=== PATIENT | male | born 1955 | race Caucasian/White ===

== ENCOUNTER → 2018-08-22 | Outpatient (CLI) | payer MEDICARE, OTHER ==
[2018-08-22 17:00] LABS: Basophils # (A) 0.1 k/uL (0-0.2); Basophils % (A) 1 %; Eosinophils # (A) 0.4 k/uL (0-0.7); Eosinophils % (A) 4 %; HCT 49.6 % (39.0-53.0); HGB 15.7 gm/dL (13.0-17.5); Lymphocytes # (A) 2.9 k/uL (1.0-4.8); Lymphocytes % (A) 33 %; MCH 31.1 pg (25.0-35.0); MCHC 31.7 g/dL (31.0-37.0); Mean Platelet Volume 6.3; Monocytes # (A) 0.6 k/uL (0-1.0); Monocytes % (A) 7 %; Neutrophils # (A) 4.6 k/uL (1.3-7.7); Neutrophils % (A) 53 %; Platelet Count 213 k/uL (150-450); RBC 5.06 m/uL (4.30-5.90); RDW 12.9 % (11.5-15.5); WBC 8.7 k/uL (3.8-10.6)
--- NOTE | 2018-08-23 10:11 | XR ---
EXAMINATION TYPE: XR chest 2V DATE OF EXAM: 08/22/2018 COMPARISON: NONE HISTORY: Dyspnea on exertion TECHNIQUE: Frontal and lateral views of the chest are obtained. FINDINGS: There is no focal air space opacity, pleural effusion, or pneumothorax seen. The cardiac silhouette size is within normal limits. The osseous structures are intact. Some thickening of the fissures noted on the right is mild. There is elevation of the right hemidiaphragm. IMPRESSION: No acute cardiopulmonary process. Additional findings above.
[2018-08-23 11:54] LABS: Albumin 4.5 g/dL (3.80-4.90); Albumin/Globulin Ratio 1.55 (1.60-3.17); Anion Gap 16.1 mmol/L (4.00-12.00); Carbon Dioxide 22.9 mmol/L (21.6-31.8); Globulin 2.9 g/dL (1.6-3.3); Total Bilirubin 0.5 mg/dL (0.3-1.2); Total Protein 7.4 g/dL (6.2-8.2)
== END | disposition home or self-care (01) ==
LOC: LABWHC1 15:26
PROVIDERS: ATTEND Family Medicine
DX: J98.6 Disorders of diaphragm (principal); R91.8 Other nonspecific abnormal finding of lung field; R06.09 Other forms of dyspnea; E66.9 Obesity, unspecified; R94.31 Abnormal electrocardiogram [ECG] [EKG]; N40.0 Benign prostatic hyperplasia without lower urinary tract symptoms
CPT/HCPCS: 36415; 71046; 80053; 82550; 82552; 84153; 85025

== ENCOUNTER → 2018-08-24 | Outpatient (CLI) | payer MEDICARE, OTHER ==
[~2018-08-24] MED LIST: REGADENOSON 0.4 MG/5 ML SYRINGE IV ONE
--- NOTE | 2018-08-24 10:45 | EST ---
EXERCISE STRESS DATE OF SERVICE: 08/24/2018 AGE: 63 SEX: Male HT: 68" WT: 250 pounds PROTOCOL: Lexiscan Cardiolite STAGE: DURATION OF EXERCISE: HEART RATE REST: 86 BLOOD PRESSURE REST: 118/83 MAXIMUM HEART RATE ACHIEVED: 100 MAXIMUM BLOOD PRESSURE: 124/63 85% MPHR: 100% MPHR: METS: INDICATIONS: Shortness of breath. CLINICAL INFORMATION: Baseline EKG shows sinus rhythm, normal axis, normal intervals. The patient was given intravenous Lexiscan as per protocol. Did not have chest pain or diagnostic ST-segment depression. CONCLUSIONS: 1. Negative stress test by EKG criteria. 2. Cardiolite portion of the stress test will be reported separately. MMODL / IJN: [id number] /
--- NOTE | 2018-08-24 12:13 | ECHOF ---
Referral Reason:R94.31 Abnormal ekg MEASUREMENTS -------- HEIGHT: 172.7 cm WEIGHT: 113.4 kg BP: 118/64 RVIDd: 3.5 cm (< 3.3) IVSd: 1.3 cm (0.6 - 1.1) LVIDd: 4.3 cm (3.9 - 5.3) LVPWd: 1.3 cm (0.6 - 1.1) IVSs: 1.6 cm LVIDs: 2.6 cm LVPWs: 1.4 cm LA Diam: 2.9 cm (2.7 - 3.8) LAESV Index (A-L): 18.66 ml/m Ao Diam: 4.0 cm (2.0 - 3.7) AV Cusp: 2.8 cm (1.5 - 2.6) MV EXCURSION: 16.659 mm (> 18.000) MV EF SLOPE: 28 mm/s (70 - 150) EPSS: 0.6 cm MV E Alexx: 0.64 m/s MV DecT: 326 ms MV A Alexx: 0.80 m/s MV E/A Ratio: 0.81 RAP: 5.00 mmHg RVSP: 33.95 mmHg FINDINGS -------- Sinus rhythm. This was a technically adequate study. The left ventricular size is normal. There is mild concentric left ventricular hypertrophy. Overa ll left ventricular systolic function is normal with, an EF between 60 - 65 %. The right ventricle is normal in size. Normal LA size by volume 22+/-6 ml/m2. The right atrium is normal in size. The aortic valve is trileaflet and appears structurally normal. The mitral valve is normal. Mild tricuspid regurgitation present. Right ventricular systolic pressure is normal at < 35 mmHg. Trace/mild (physiologic) pulmonic regurgitation. The aortic root is dilated measuring 4.0cm. Normal inferior vena cava with normal inspiratory collapse consistent with estimated right atrial pre ssure of 5 mmHg. There is no pericardial effusion. CONCLUSIONS -------- 1. Sinus rhythm. 2. This was a technically adequate study. 3. The left ventricular size is normal. 4. There is mild concentric left ventricular hypertrophy. 5. Overall left ventricular systolic function is normal with, an EF between 60 - 65 %. 6. The right ventricle is normal in size. 7. Normal LA size by volume 22+/-6 ml/m2. 8. The right atrium is normal in size. 9. The aortic valve is trileaflet and appears structurally normal. 10. The mitral valve is normal. 11. Mild tricuspid regurgitation present. 12. Right ventricular systolic pressure is normal at < 35 mmHg. 13. Trace/mild (physiologic) pulmonic regurgitation. 14. The aortic root is dilated measuring 4.0cm. 15. Normal inferior vena cava with normal inspiratory collapse consistent with estimated right atrial pressure of 5 mmHg. 16. There is no pericardial effusion. AIRPLANE CAPTAIN: Virginia Encarnacion RDCS
--- NOTE | 2018-08-24 12:30 | NM ---
"EXAMINATION TYPE: NM stress lexiscan cardiolite DATE OF EXAM: 08/24/2018 COMPARISON: NONE HISTORY: Chest pain TECHNIQUE: After the intravenous administration of 10.0 mCi Tc 99m Sestamibi - Cardiolite resting SP ECT images acquired 45 minutes post injection. The patient received 0.4mg Lexiscan, 24.8 mCi Tc 99m Sestamibi - Stress images obtained [address] injection FINDINGS: Review of stress and rest SPECT images demonstrates question a small area of stress-induced reversibi lity involving the inferior lateral myocardium. Gated analysis shows normal wall motion with an cosme mated left ventricular ejection fraction of 60 %. Report called to referring clinician by telephone. IMPRESSION: 1. Lines suggestive of a small area of stress-induced reversibility and ischemia involving the inferi or lateral myocardium correlate clinically. 2. Ejection fraction of 60% A [place] level critical message alert has been initiated for Violeta Hernandez MD via the [employer] [facility] | Critical Results System on 08/24/2018 12:26 PM. This message alert has been sent to Violeta sanchez MD via the preferences provided by the clinician for the receipt of Radiology Critical Findings. Александр [facility] ID [id number]."
== END | disposition home or self-care (01) ==
LOC: RADNMMAIN 08:34
PROVIDERS: ATTEND Family Medicine
DX: I07.1 Rheumatic tricuspid insufficiency (principal); I37.1 Nonrheumatic pulmonary valve insufficiency
CPT/HCPCS: 93017; 93306; 78452; A9500; J2785

== ENCOUNTER → 2018-08-26 | Outpatient (CLI) | payer MEDICARE, OTHER | END | disposition home or self-care (01) | LOC: LABWHC1 08:43 | PROVIDERS: ATTEND Nurse Practitioner Adult Health | DX: E78.2 Mixed hyperlipidemia (principal) | CPT/HCPCS: 36415; 80061; 84450; 84460 ==

== ENCOUNTER → 2018-08-29 | Day surgery (SDC) | payer MEDICARE, OTHER ==
[2018-08-25 14:28] VITALS: BMI 38.0
[~2018-08-29] MED LIST changes: +ALPRAZolam 0.25 MG TAB PO PRN; +ALPRAZolam 0.5 MG TAB PO PRN; +ASPIRIN 325 MG TAB PO STA; +ATORVASTATIN 80 MG TAB PO STA; +HYDROcodone/APAP 5-325MG 1 EACH TAB PO PRN; +IOPAMIDOL-370 100ML BTL INJ ONE; +IOPAMIDOL-370 50ML BTL INJ ONE; +LIDOCAINE 1% INJ 10MG/ML (20 ML MDV) ONE; +LIDOCAINE 1% INJ 10MG/ML (20 ML MDV) SQ ONE; +MIDAZOLAM 2 MG/2 ML VIAL IVP ONE; +NITROGLYCERIN SL TABS 0.4 MG TAB SUBLINGUAL PRN; -REGADENOSON 0.4 MG/5 ML SYRINGE IV ONE; +RX INFO: IV CONTRAST WAS GIVEN 1 EACH MISC MISCELLANE PRN; +SODIUM CHLORIDE 0.9% 1,000 ML IV SCH; +SODIUM CHLORIDE 0.9% 1,000 ML in EMPTY BAG 1 BAG IV ONE; +fentaNYL (PF) 50 MCG/ML 2 ML AMP IVP ONE; +fentaNYL (PF) 50 MCG/ML 2 ML AMP ONE
[2018-08-29 10:04] VITALS: TEMP 98
--- NOTE | 2018-08-29 13:03 | CC ---
CARDIAC CATHETERIZATION REPORT Mrs Roberts is a 63-year-old female who was seen by Dr. Simon. Patient is having a recent onset of exertional shortness of breath. A stress test was suggestive of mild inferior lateral ischemia. In view of that, the patient was recommended to have a cardiac catheterization for definitive diagnosis. PROCEDURE: The right groin was prepped and draped in the usual manner and the skin was infiltrated with 2% Xylocaine. The right femoral artery was entered using Seldinger technique and a micropuncture needle, a #6-Monegasque sheath was placed in. Selective coronary angiography was then performed in multiple projections. Left ventriculography was performed in 30-degree SALAZAR projection. Sheath was removed. Good hemostasis was achieved with the use of Angio-Seal. Moderate sedation was used. The sedation time was 27 minutes. HEMODYNAMICS: Left ventricular end-diastolic pressure is 8-10 mmHg prior to angiography. No gradient is noted across the aortic valve. SELECTIVE CORONARY ANGIOGRAPHY: Left main coronary artery is normal and patent. LAD is a good caliber blood vessel and gives rise to a good size diagonal branch. LAD and its branches are normal. Circumflex coronary artery is a good caliber blood vessel and gives rise to a good size obtuse marginal branch. Circumflex coronary artery and its branches are normal. The right coronary artery is dominant in distribution and gives rise to the PDA and PLV branch. Right coronary artery is normal. Left ventriculography revealed ejection fraction of 60%. IMPRESSION: There is a mild irregularity in the LAD system. Circumflex and right coronary arteries are normal. RECOMMENDATIONS: Medical treatment and risk factor modification. MMODL / IJN: [id number] /
[2018-08-29 13:04] VITALS: RESP 18
[2018-08-29 14:10] VITALS: BP 104/58; PULSE 94
== END | disposition home or self-care (01) ==
LOC: CATHCVL 09:19
PROVIDERS: ATTEND Internal Medicine Cardiovascular Disease
DX: R94.39 Abnormal result of other cardiovascular function study (principal); R06.02 Shortness of breath; Z79.899 Other long term (current) drug therapy
CPT/HCPCS: 93458; C1760; C1894; C1769 ×2; J2250; J2001; J3010; Q9967 ×2

== ENCOUNTER 2018-08-30 12:31 | Emergency (ER) | payer MEDICARE, OTHER ==
[2018-08-30] MEDS ORDERED: IPRATROPIUM-ALBUTEROL 3 ML NEB INHALATION STA (12:52)
[2018-08-30] MEDS ORDERED: SODIUM CHLORIDE 0.9% 1,000 ML IV STA (13:03)
--- NOTE | 2018-08-30 13:09 | ED ---
General Adult HPI - General Chief complaint: Shortness of Breath Stated complaint: SOB Time Seen by Provider: 08/30/18 12:40 Source: patient, RN notes reviewed, old records reviewed Limitations: no limitations - History of Present Illness Initial comments: 63-year-old male patient past medical history of BPH presents to ED with approximately 4 weeks of shortness of breath with exertion. Patient reports that in the last week this shortness of breath exertion has gotten worse. Patient has additionally had a waxing and waning cough for approximately 2 months. Patient has been noted by his primary care provider for this problem, was referred to cardiology where he underwent a cardiac catheterization yesterday. This cardiac catheterization revealed mild irregularity of the LAD, and an ejection fraction of 60%. Patient denies any chest pain. Patient states that right now his shortness of breath is minimal. Patient denies any other complaints. Patient denies abdominal pain, nausea vomiting diarrhea, fevers or chills. Systemic: Pt denies fatigue, myalgia, fever/chills, rash. Pt denies weakness, night sweats, weight loss. Neuro: Pt denies headache, visual disturbances, syncope or pre-syncope. HEENT: Pt denies ocular discharge or irritation, otalgia, rhinorrhea, pharyngitis or notable lymphadenopathy. Cardiopulmonary: Pt denies chest pain, heart palpitations. Abdominal/GI: Pt denies abdominal pain, n/v/d. : Pt denies dysuria, burning w/ urination, frequency/urgency. Denies new onset urinary or bowel incontinence. MSK: Pt denies myalgia, loss of strength or function in extremities. Neuro: Pt denies new onset weakness, paresthesias. - Related Data Home Medications Medication Instructions Recorded Confirmed Atorvastatin [Lipitor] 20 mg PO HS 08/25/18 08/30/18 Finasteride [Proscar] 5 mg PO HS 08/25/18 08/30/18 Isosorbide Mononitrate ER [Imdur] 30 mg PO DAILY 08/25/18 08/30/18 Metoprolol Tartrate [Lopressor] 25 mg PO QA 08/25/18 08/30/18 Mirtazapine [Remeron] 30 mg PO HS 08/25/18 08/30/18 Tamsulosin [Flomax] 0.4 mg PO DAILY 08/25/18 08/30/18 Allergies Allergy/AdvReac Type Severity Reaction Status Date / Time No Known Allergies Allergy Verified 08/30/18 12:57 Review of Systems ROS Statement: Those systems with pertinent positive or pertinent negative responses have been documented in the HPI. ROS Other: All systems not noted in ROS Statement are negative. Past Medical History Past Medical History: Cancer, Prostate Disorder Additional Past Medical History / Comment(s): wheezing/SOB with activity, frequent coughing, melanoma, hx kidney stones History of Any Multi-Drug Resistant Organisms: None Reported Additional Past Surgical History / Comment(s): melanoma removed from face, Past Anesthesia/Blood Transfusion Reactions: No Reported Reaction Past Psychological History: No Psychological Hx Reported Smoking Status: Never smoker Past Alcohol Use History: None Reported Past Drug Use History: None Reported - Past Family History Mother Family Medical History: No Reported History General Exam - General Exam Comments Initial Comments: Constitutional: NAD, AOX3, Pt has pleasant affect. HEENT: NC/AT, trachea midline, neck supple, no lymphadenopathy. Posterior pharynx non erythematous, without exudates. External ears appear normal, without discharge. Mucous membranes moist. Eyes PERRLA, EOM intact. There is no scleral icterus. No pallor noted. Cardiopulmonary: RRR, no murmurs, rubs or gallops, no JVD noted. Lungs CTAB in anterior and posterior edwards. No peripheral edema. Abdominal exam: Abdomen soft and non-distended. Abdomen non-tender to palpation in all 4 quadrants. Bowel sounds active in LLQ. No hepatosplenomegaly. No ecchymosis Neuro: CN II-XII grossly intact. No nuchal rigidity. MSK: No posterior calf tenderness bilaterally, homans sign negative bilaterally. Posterior tibialis and radial pulse +2 bilaterally. Sensation intact in upper and lower extremities. Full active ROM in upper and lower extremities, 5/5 stregnth. Limitations: no limitations Course Vital Signs 08/30/18 08/30/18 08/30/18 12:35 13:00 13:10 Temperature 97.8 F Pulse Rate 100 101 H 96 Respiratory 18 18 Rate Blood Pressure 115/74 140/77 O2 Sat by Pulse 93 L 93 L Oximetry 08/30/18 08/30/18 08/30/18 14:00 15:00 16:00 Temperature 98.6 F Pulse Rate 98 101 H 103 H Respiratory 22 22 20 Rate Blood Pressure 108/63 127/76 125/73 O2 Sat by Pulse 93 L 94 L 97 Oximetry Medical Decision Making - Medical Decision Making 63-year-old male patient past medical history of BPH presents to ED with approximately 4 weeks of shortness of breath with exertion. Patient reports that in the last week this shortness of breath exertion has gotten worse. Patient has additionally had a waxing and waning cough for approximately 2 months. Patient has been noted by his primary care provider for this problem, was referred to cardiology where he underwent a cardiac catheterization yesterday. This cardiac catheterization revealed mild irregularity of the LAD, and an ejection fraction of 60%. Patient denies any chest pain. Patient states that right now his shortness of breath is minimal. Patient denies any other complaints. Patient denies abdominal pain, nausea vomiting diarrhea, fevers or chills. Pt VS display HR of 100, sp02 of 93%. Physical exam did not reveal acute pathology. Laboratory investigations revealed nonimmpressive CBC. Coagulation studies nonimpressive. CMP nonimpressive. D dimer elevated at 31.97. Troponin elevated at .048. BNP elevated at 4550. Pulmonary angiography revealed massive pulmonary emboli with right ventricular strain. Pt started on highdose heparin. Pt transferred to [facility], spoke with attending physician Dr. Jeffries Case discussed in depth and pt seen by Dr. Holder. Vitals prior to transfer, 125/73 97% sp02, HR 101. - Lab Data Result diagrams: 08/30/18 13:33 08/30/18 13:33 Lab Results 08/30/18 08/30/18 08/30/18 Range/Units 13:33 13:33 13:33 WBC 9.2 (3.8-10.6) k/uL RBC 4.51 (4.30-5.90) m/uL Hgb 14.3 (13.0-17.5) gm/dL Hct 43.8 (39.0-53.0) % MCV 97.0 (80.0-100.0) fL MCH 31.7 (25.0-35.0) pg MCHC 32.7 (31.0-37.0) g/dL RDW 13.0 (11.5-15.5) % Plt Count 216 (150-450) k/uL Neutrophils % 63 % Lymphocytes % 26 % Monocytes % 6 % Eosinophils % 3 % Basophils % 1 % Neutrophils # 5.8 (1.3-7.7) k/uL Lymphocytes # 2.4 (1.0-4.8) k/uL Monocytes # 0.5 (0-1.0) k/uL Eosinophils # 0.3 (0-0.7) k/uL Basophils # 0.0 (0-0.2) k/uL PT 11.4 (9.0-12.0) sec INR 1.1 (<1.2) APTT 25.4 (22.0-30.0) sec D-Dimer 31.97 H (<0.60) mg/L FEU Sodium 144 (137-145) mmol/L Potassium 4.9 (3.5-5.1) mmol/L Chloride 109 H (98-107) mmol/L Carbon Dioxide 26 (22-30) mmol/L Anion Gap 9 mmol/L BUN 22 H (9-20) mg/dL Creatinine 1.18 (0.66-1.25) mg/dL Est GFR (CKD-EPI)AfAm 74 (>60 ml/min/1.73 sqM) Est GFR (CKD-EPI)NonAf 64 (>60 ml/min/1.73 sqM) Glucose 126 H (74-99) mg/dL Calcium 9.3 (8.4-10.2) mg/dL Magnesium (1.6-2.3) mg/dL Total Bilirubin 0.8 (0.2-1.3) mg/dL AST 29 (17-59) U/L ALT 39 (21-72) U/L Alkaline Phosphatase 42 (38-126) U/L Troponin I (0.000-0.034) ng/mL NT-Pro-B Natriuret Pep pg/mL Total Protein 6.9 (6.3-8.2) g/dL Albumin 3.8 (3.5-5.0) g/dL 08/30/18 08/30/18 08/30/18 Range/Units 13:33 13:33 13:33 WBC (3.8-10.6) k/uL RBC (4.30-5.90) m/uL Hgb (13.0-17.5) gm/dL Hct (39.0-53.0) % MCV (80.0-100.0) fL MCH (25.0-35.0) pg MCHC (31.0-37.0) g/dL RDW (11.5-15.5) % Plt Count (150-450) k/uL Neutrophils % % Lymphocytes % % Monocytes % % Eosinophils % % Basophils % % Neutrophils # (1.3-7.7) k/uL Lymphocytes # (1.0-4.8) k/uL Monocytes # (0-1.0) k/uL Eosinophils # (0-0.7) k/uL Basophils # (0-0.2) k/uL PT (9.0-12.0) sec INR (<1.2) APTT (22.0-30.0) sec D-Dimer (<0.60) mg/L FEU Sodium (137-145) mmol/L Potassium (3.5-5.1) mmol/L Chloride (98-107) mmol/L Carbon Dioxide (22-30) mmol/L Anion Gap mmol/L BUN (9-20) mg/dL Creatinine (0.66-1.25) mg/dL Est GFR (CKD-EPI)AfAm (>60 ml/min/1.73 sqM) Est GFR (CKD-EPI)NonAf (>60 ml/min/1.73 sqM) Glucose (74-99) mg/dL Calcium (8.4-10.2) mg/dL Magnesium 2.0 (1.6-2.3) mg/dL Total Bilirubin (0.2-1.3) mg/dL AST (17-59) U/L ALT (21-72) U/L Alkaline Phosphatase (38-126) U/L Troponin I 0.048 H* (0.000-0.034) ng/mL NT-Pro-B Natriuret Pep 4550 pg/mL Total Protein (6.3-8.2) g/dL Albumin (3.5-5.0) g/dL - EKG Data -: EKG Interpreted by Me (and dr holder) EKG Comments: Ventricular rate 97, TN interval 114, QRS 102, QT/QTC 390/495. Normal sinus rhythm, anterior infarct, age undetermined. Abnormal EKG. Disposition Clinical Impression: Pulmonary embolism Disposition: OTHER INSTITUTION NOT DEFINED Condition: Serious Instructions (If sedation given, give patient instructions): Pulmonary Embolism (ED) Is patient prescribed a controlled substance at d/c from ED?: No Referrals: Violeta Hernandez MD [Primary Care Provider] - 1-2 days - Out of Hospital Transfer - Req. Specs Out of Hospital Transfer - Requested Specifics: Other Emergency Center
[2018-08-30 13:56] LABS: Basophils % (A) 1 %; Eosinophils # (A) 0.3 k/uL (0-0.7); Eosinophils % (A) 3 %; HCT 43.8 % (39.0-53.0); HGB 14.3 gm/dL (13.0-17.5); Lymphocytes # (A) 2.4 k/uL (1.0-4.8); Lymphocytes % (A) 26 %; MCH 31.7 pg (25.0-35.0); MCHC 32.7 g/dL (31.0-37.0); Mean Platelet Volume 7.1; Monocytes # (A) 0.5 k/uL (0-1.0); Monocytes % (A) 6 %; Neutrophils # (A) 5.8 k/uL (1.3-7.7); Neutrophils % (A) 63 %; Platelet Count 216 k/uL (150-450); RBC 4.51 m/uL (4.30-5.90); WBC 9.2 k/uL (3.8-10.6)
[2018-08-30 14:05] LABS: Albumin 3.8 g/dL (3.5-5.0); Calcium 9.3 mg/dL (8.4-10.2); Potassium 4.9 mmol/L (3.5-5.1); Total Bilirubin 0.8 mg/dL (0.2-1.3); Total Protein 6.9 g/dL (6.3-8.2)
--- NOTE | 2018-08-30 14:20 | XR ---
EXAMINATION TYPE: XR chest 2V DATE OF EXAM: 08/30/2018 COMPARISON: 08/22/2018 HISTORY: 63 year-old male shortness of breath, difficulty breathing TECHNIQUE: PA and lateral views FINDINGS: Somewhat lordotic positioning. Heart upper limits of normal in size. Bilateral hilar prominence. Mini mal thickening of the minor fissure. Mild interstitial prominence. No kae consolidation or pleural effusion. IMPRESSION: 1. Bilateral hilar prominence. This could represent underlying hilar lymphadenopathy or pulmonary art erial hypertension. Nonemergent contrast enhanced CT of the chest to further evaluate. 2. Mild interstitial prominence could reflect bronchitis or asthma.
[2018-08-30 14:28] LABS: INR 1.1 (<1.2); Partial Thromboplastin Time 25.4 sec (22.0-30.0); Prothrombin Time 11.4 sec (9.0-12.0)
[2018-08-30 14:35] LABS: D-Dimer 31.97 mg/L FEU (<0.60)
[2018-08-30] MEDS ORDERED: HEPARIN SODIUM,PORCINE 10,000 UNIT/ML 1 ML VIAL IV ONE (15:06)
[2018-08-30] MEDS ORDERED: HEPARIN SODIUM,PORCINE 5,000 UNIT/ML 1 ML VIAL IV PRN (15:06)
[2018-08-30] MEDS ORDERED: HEPARIN SOD,PORK IN 0.45% NACL 25,000 UNIT in 0.45% NACL 1 250ML.BAG IV SCH (15:15)
--- NOTE | 2018-08-30 15:40 | CT ---
EXAMINATION TYPE: CT chest angio for PE DATE OF EXAM: 08/30/2018 COMPARISON: Chest x-ray same date HISTORY: Shortness of breath, elevated d-dimer CT DLP: 786.3 mGycm Automated exposure control for dose reduction was used. CONTRAST: CT Chest for pulmonary embolism performed with with IV Contrast, patient injected with 100 mL of Isov ue 370. FINDINGS: LUNGS: The lungs are remarkable for nodular density seen along the fissure laterally measuring approx imately 2 cm in greatest AP dimension, additional small nodular density in the subpleural location ax ial image 78 is present in the subpleural location along the fissure measuring only 9 mm. Minimal la undglass opacity present in the left upper lobe is noted peripherally. MEDIASTINUM: There is extensive abnormal filling defect present within the pulmonary arteries, segmen deena branches, sagittal and was is present. Pulmonary artery is dilated. Reflux of contrast present wi thin the inferior vena cava, hepatic veins. Question some bowing of the interventricular septum sugge sting right ventricular strain. No pleural pericardial effusion. AORTA: No additional significant abnormality is seen. No evident aneurysm or dissection. OTHER: Low-attenuation of the liver may be due to hepatic steatosis. IMPRESSION: Massive pulmonary emboli with right ventricular strain, results called to Adam in the emergency center at the time of performance of the exam. Indeterminate nodular densities in the right lung a question able clinical significance, follow-up suggested to exclude soft tissue mass. Possible pulmonary infar ction left upper lobe. Additional findings above.
[2018-08-30 16:25] VITALS: BP 125/73; PULSE 103; RESP 20; TEMP 98.6
== END 2018-08-30 16:15 | disposition short-term general hospital (02) ==
LOC: EC 12:31
DX: I26.99 Other pulmonary embolism without acute cor pulmonale (principal); Z79.899 Other long term (current) drug therapy; Z85.820 Personal history of malignant melanoma of skin; Z95.5 Presence of coronary angioplasty implant and graft
CPT/HCPCS: 36415; 94640; 93005; 85379; 83880; 80053; 83735; 84484; 85025; 85610; 85730; 71046; 71275; 99285; 96374; 96361; J1644 ×2; Q9967

== ENCOUNTER → 2019-01-04 | Outpatient (CLI) | payer MEDICARE, OTHER ==
--- NOTE | 2019-01-04 13:55 | MR ---
EXAMINATION TYPE: MR lumbar spine wo con DATE OF EXAM: 01/04/2019 COMPARISON: None HISTORY: Low back pain, stenosis TECHNIQUE: Multiplanar, multisequence images of the lumbar spine were acquired. L1-L2: Posterior broad-based disc bulge results in some mild central stenosis. No significant foramin al encroachment. There is facet arthropathy L2-L3: Posterior broad-based disc bulge causes mild anterior mass effect on the thecal sac. There is facet arthropathy change. Mild central stenosis. No significant foraminal encroachment. L3-L4: Broad-based posterior disc bulge is present, more focal small central disc herniation is suspe cted causing anterior mass effect on the thecal sac, mild to moderate central stenosis. There is face t arthropathy causing posterior lateral mass effect on the thecal sac greater from the right, circumf erential extension of endplate disc complex encroaches mildly on the right foramen. L4-L5: Facet arthropathy with hypertrophy ligamentum flavum causes posterior lateral mass effect on t he thecal sac and results in some mild to moderate central stenosis. Circumferential disc bulge cause s mild anterior mass effect on the thecal sac. Lateral extension of endplate disc complex results in some foraminal encroachment greater on the right than on the left. L5-S1: Posterior broad-based disc bulge contacts anterior thecal sac and possibly the proximal S1 ner ve roots, circumferential extension of endplate disc complex causes foraminal encroachment greater on the left than on the right. No significant central stenosis. There is facet arthropathy change prese nt. Lumbar segments are intact. No paraspinal masses are identified. Conus medullaris has a normal appe arance. There is a levoscoliosis centered at the mid lumbar spine. Lumbar vertebral bodies show prese rved height. There is anterolisthesis grade 1 L4-5. Multilevel spondylosis with endplate discogenic m arrow signal changes are present. Probable hemangioma is present within the sacral levels as well as T12. There is loss of disc height and signal at intervertebral levels greatest at L5-S1, L4-5, to les ser extent L3-4, L1-2. IMPRESSION: Degenerative disc disease, facet arthropathy, scoliosis, multilevel foraminal encroachment as describ ed.
== END | disposition home or self-care (01) ==
LOC: RADMRIMAIN 09:08
PROVIDERS: ATTEND Family Medicine
DX: M51.36 Other intervertebral disc degeneration, lumbar region (principal); M46.96 Unspecified inflammatory spondylopathy, lumbar region; M41.86 Other forms of scoliosis, lumbar region
CPT/HCPCS: 72148

== ENCOUNTER → 2020-10-02 | Outpatient (CLI) | payer MEDICARE, OTHER ==
[2020-10-02 18:44] LABS: Basophils # (A) 0.05 X 10*3/uL (0.00-0.10); Basophils % (A) 0.8 %; Eosinophils # (A) 0.15 X 10*3/uL (0.04-0.35); Eosinophils % (A) 2.5 %; HGB 16.3 g/dL (13.0-17.0); Lymphocytes # (A) 2.38 X 10*3/uL (0.90-5.00); MCH 32.3 pg (27.0-32.0); MCHC 32.6 g/dL (32.0-37.0); Mean Platelet Volume 9.5 fL (9.5-12.2); Monocytes # (A) 0.55 X 10*3/uL (0.20-1.00); Neutrophils # (A) 2.96 X 10*3/uL (1.80-7.70); Neutrophils % (A) 48.5 %; Platelet Count 287 X 10*3/uL (140-440); RBC 5.05 X 10*6/uL (4.40-5.60); RDW 13.7 % (11.5-14.5)
[2020-10-03 00:21] LABS: African American GFR (CKD) 72.1 (60.0-200.0); Albumin 4.7 g/dL (3.80-4.90); Albumin/Globulin Ratio 2.14 (1.60-3.17); Anion Gap 11.1 mmol/L (4.00-12.00); BUN/Creat Ratio 19.17 Ratio (12.00-20.00); Carbon Dioxide 22.9 mmol/L (21.6-31.8); Chol/HDL Ratio 5.1; Globulin 2.2 g/dL (1.6-3.3); Non-African American GFR(CKD) 62.2 (60.0-200.0); Potassium 4.7 mmol/L (3.5-5.5); Total Bilirubin 0.8 mg/dL (0.3-1.2); Total Protein 6.9 g/dL (6.2-8.2)
== END | disposition home or self-care (01) ==
LOC: LABWHC1 08:17
PROVIDERS: ATTEND Family Medicine
DX: Z00.00 Encounter for general adult medical examination without abnormal findings (principal); Z11.59 Encounter for screening for other viral diseases
CPT/HCPCS: 36415; 80053; 80061; 84439; 84443; 85025; 86803

== ENCOUNTER → 2021-01-13 | Outpatient (CLI) | payer MEDICARE, OTHER ==
[2021-01-13 17:43] LABS: Chol/HDL Ratio 2.96
== END | disposition home or self-care (01) ==
LOC: LABWHC1 07:57
PROVIDERS: ATTEND Family Medicine
DX: E78.5 Hyperlipidemia, unspecified (principal)
CPT/HCPCS: 36415; 80061; 84450; 84460

== ENCOUNTER → 2022-02-01 | Outpatient (CLI) | payer MEDICARE, OTHER ==
[2022-02-01 14:28] LABS: Basophils # (A) 0.05 X 10*3/uL (0.00-0.10); Basophils % (A) 0.8 %; Eosinophils # (A) 0.32 X 10*3/uL (0.04-0.35); Eosinophils % (A) 5.2 %; HCT 50.5 % (39.6-50.0); HGB 15.7 g/dL (13.0-17.0); Immature Grans, Automated 0.2 %; Lymphocytes # (A) 2.32 X 10*3/uL (0.90-5.00); Lymphocytes % (A) 37.5 %; MCH 31.3 pg (27.0-32.0); MCHC 31.1 g/dL (32.0-37.0); MCV 100.6 fL (80.0-97.0); Mean Platelet Volume 9.8 fL (9.5-12.2); Monocytes # (A) 0.63 X 10*3/uL (0.20-1.00); Monocytes % (A) 10.2 %; NRBC Per 100 WBC 0 /100 WBCS (0.0-0.0); Neutrophils # (A) 2.85 X 10*3/uL (1.80-7.70); Neutrophils % (A) 46.1 %; Platelet Count 285 X 10*3/uL (140-440); RBC 5.02 X 10*6/uL (4.40-5.60); RDW 13.5 % (11.5-14.5); WBC 6.18 X 10*3/uL (4.50-10.00)
[2022-02-01 14:35] LABS: ALT 29 U/L (10-49); AST 31 U/L (14-35); African American GFR (CKD) 89.2 (60.0-200.0); Albumin 4.4 g/dL (3.8-4.9); Albumin/Globulin Ratio 1.56 (1.60-3.17); Alkaline Phosphatase 34 U/L (41-126); Blood Urea Nitrogen 18.2 mg/dL (9.0-27.0); Calcium 9.5 mg/dL (8.7-10.3); Carbon Dioxide 26.8 mmol/L (20.0-27.5); Chloride 105 mmol/L (96-109); Chol/HDL Ratio 2.94 Ratio; Globulin 2.8 g/dL (1.6-3.3); Glucose 114 mg/dL (70-110); LDL Cholesterol,Calculated 80.3 mg/dL (0.0-131.0); Potassium 4.8 mmol/L (3.5-5.5); Sodium 142 mmol/L (135-145); Total Protein 7.2 g/dL (6.2-8.2); VLDL Calculation 18.08 mg/dL (5.00-40.00)
== END | disposition home or self-care (01) ==
LOC: LABWHC1 08:59
PROVIDERS: ATTEND Family Medicine
DX: E78.5 Hyperlipidemia, unspecified (principal)
CPT/HCPCS: 36415; 80053; 80061; 84443; 85025

== ENCOUNTER → 2024-01-05 | Outpatient (CLI) | payer MEDICARE, OTHER ==
--- NOTE | 2024-01-06 11:36 | MR ---
EXAMINATION TYPE: MR lumbar spine wo con DATE OF EXAM: 01/05/2024 COMPARISON: 01/04/2019 HISTORY: Lower back and left knee pain. TECHNIQUE: Multiplanar, multisequence images of the lumbar spine were acquired without IV contrast. Moderate curvature of the lumbar spine convex to the left. L1-L2: Moderate disc desiccation of the moderate circumferential disc bulge as well as posteriorly. T here is moderate central stenosis unchanged from prior study. Degenerative change of the lumbar facet joints with mild left-sided foraminal encroachment seen. L2-L3: Moderate disc desiccation of the moderate circumferential disc bulge as well as posteriorly. T here is moderate central stenosis unchanged from prior study. Degenerative change of the lumbar facet joints with mild left-sided foraminal encroachment seen. L3-L4: Severe disc desiccation with posterior disc bulge. Hypertrophy of ligamentum flavum and facet joint arthropathy resulting in moderate to severe central stenosis unchanged from prior study. Bilate ral neural foraminal encroachment. L4-L5: Severe disc desiccation with posterior disc bulge. Hypertrophy of ligamentum flavum and facet joint arthropathy resulting in moderate to severe central stenosis unchanged from prior study. Bilate ral neural foraminal encroachment. L5-S1: Severe disc desiccation with mild posterior disc bulge. No evidence for herniation or protrusi on. No central stenosis. Moderate left foraminal encroachment. Lumbar segments are intact. Multilevel degenerative endplate marrow change. No paraspinal masses are identified. Conus medullaris has a normal appearance. IMPRESSION: 1. Stable degenerative disc disease with disc bulging and multilevel central stenosis and foraminal e ncroachment essentially unchanged from prior study.
== END | disposition home or self-care (01) ==
LOC: RADMRIMAIN 12:32
PROVIDERS: ATTEND Orthopaedic Surgery
DX: M47.816 Spondylosis without myelopathy or radiculopathy, lumbar region (principal); M51.36 Other intervertebral disc degeneration, lumbar region; M48.061 Spinal stenosis, lumbar region without neurogenic claudication
CPT/HCPCS: 72148

== ENCOUNTER → 2024-02-16 | Outpatient (CLI) | payer MEDICARE, OTHER ==
[2024-02-16 10:01] VITALS: BP 155/80; PULSE 65; RESP 16
--- NOTE | 2024-02-16 10:35 | P.PAINPG ---
PQRS Measure Charge Sheet Comment: HISTORY OF PRESENT ILLNESS: A 69 yr old male as a referral from Dr Brannon presents today w severe and chronic secondary to DDD, spondylosis and facet arthropathy without myelopathy for evaluation. Pt states pain level is provoked at 9 /10 in intensity, constant, localized in the lumbar spine, predominantly axial, stabbing in character w occasional shooting pain towards the BL feet. Pain is provoked by twisting. Pain is alleviated by PT x 6 wks which ended in Feb 14 2024, physician guided home exercises 3-5 times weekly since Feb 13 2024, heat, medications (Tyl), repositioning and rest . Oswestry axial pain score at 18. PMH: OA, Nephrolithiasis, Melanoma, BPH PSH: Melanoma removal from face SH: Negative x3. Retired from home FH: Mo- No Reported History All: See list Meds: See list REVIEW OF ORGAN SYSTEMS: CONSTITUTIONAL: No fevers or chills. No recent weight loss. NEUROLOGICAL: + numbness and tingling along the distal extremities. No seizure disorders or headaches. MUSCULOSKELETAL: + pain PSYCHIATRIC: Denies current depression or suicidal thoughts. Physical Examinations : Constitutional : Cooperative , not in acute distress . Neurologic : Cranial nerve II to XII intact. No focal neurological deficits. Psychiatric : alert & oriented x 3. Matching mood & appropriate affect. Judgment & insight intact. Musculoskeletal : Cervical Spine Motor strength in the deltoid and biceps: Normal right side. Normal Left side Motor strength biceps and the wrist extensors: Normal right side . Normal left side Motor strength in the triceps muscle: Normal right side. Normal left side Deep tendon reflexes: Normal at the biceps. Normal at Brachioradialis. Normal at triceps Vertebral body tenderness to deep palpation over Cervical facet loading test: positive bilaterally Spurling test: positive bilaterally Neck distraction test: positive bilaterally Jaden sign: positive bilaterally Lumbar spine Motor strength lower extremities ,thigh and legs 5/5 Right side , 5/5 Left side Deep tendon reflexes : Normal Knee J erk. Normal Ankle Jerk Vertebral body tenderness over Azevedo Test positive L3, L4, L5 Lumbar facet Loading Test: positive Right / positive Left Range of motion of the lumbar spine Flexion 30 degrees, extension 10 degrees Straight Leg Raise test: Left/ Right positive at degrees Arabella test: positive right / positive left. Severe tenderness over the Sacroiliac joint on the Right / Left sides Gaenslen test: positive bilaterally Seated flexion test: positive bilaterally. Sacral spine : Severe tenderness over the Sacroiliac joint: right side / left side Range of motion: Flexion of the lumbar spine <60 degrees Range of motion: Extension of the lumbar spine <20 degrees Gaenslen's Test positive Arabella test: positive right side / left side Thigh Thrust Test Sacral Thrust Test Imaging: MRI non contrast lumbar spine from 01/05/24 reviewed Assessment/ Plan : L3-L4/ L4-L5 posterior disc bulges Recommendation of medication management and PT x 6 wks integrated w traction M54.16. [place] 5/325mg #15 NR Use, side effects, adverse reactions, safe storage discussed. All questions answered. I have spent greater than 30 minutes on patient care today. Dr Calderon was available by phone for the evaluation of this patient. The time was used to review the medical records including relevant urine studies and Prescription history (MAPs), review of the available imaging, evaluation and examination of the patient, coordination of care with the medical staff and if applicable referring physicians, as well as creation of the medical record - Pain Location Bilateral Lower Back Non-Pharmacological Interventions: Heat, Inactivity, Massage, Physical Therapy, Position/Reposition, Sitting Pharmacological Interventions: PRN Medication PQRS Narrative: Smoking Status Never smoker Home Medications: Ambulatory Orders Atorvastatin [Lipitor] 20 mg PO HS 08/25/18 Finasteride [Proscar] 5 mg PO HS 08/25/18 Isosorbide Mononitrate ER [Imdur] 30 mg PO DAILY 08/25/18 Metoprolol Tartrate [Lopressor] 25 mg PO QAM 08/25/18 Mirtazapine [Remeron] 30 mg PO HS 08/25/18 Tamsulosin [Flomax] 0.4 mg PO DAILY 08/25/18 HYDROcodone/APAP 5-325MG [[place] 5-325] 1 tab PO Q4HR PRN 3 Days #15 tab 02/16/24 Rivaroxaban [Xarelto] 20 mg PO DAILY 02/16/24 Controlled Substance Measures - Controlled Substance Measures Is patient prescribed a controlled substance at discharge?: Yes When asked, does pt state using other controlled substances?: No If prescribed controlled substance>3 days was MAPS reviewed?: Prescribed <3 Days
== END ==
LOC: PNWHC3 09:25
PROVIDERS: ATTEND Specialist
DX: M47.26 Other spondylosis with radiculopathy, lumbar region (principal); M51.26 Other intervertebral disc displacement, lumbar region
CPT/HCPCS: 99211

== ENCOUNTER 2024-05-10 11:12 | Day surgery (SDC) | payer MEDICARE, OTHER ==
--- NOTE | 2024-05-07 08:08 | P.GSHP ---
History of Present Illness H&P Date: 05/07/24 Chief Complaint: Elevated PSA level The patient is a 69-year-old white male with no family history of prostate cancer. His PSA level has been gradually rising and was most recently 7.54. MRI shows a prostate volume of 54 cc, with a PI-RADS 4 lesion within the left peripheral zone. Patient has taken finasteride for 2 to 3 years, along with tamsulosin. - Genitourinary (Male) Genitourinary: Reports urinary frequency Past Medical History Past Medical History: Cancer, Hyperlipidemia, Prostate Disorder, Pulmonary Embolus (PE), Thyroid Disorder Additional Past Medical History / Comment(s): hx melanoma, hx kidney stones, 5 bulging discs. blood disorder that causes clots- antiphospholipid syndrome. BPH. dupuytren syndrome History of Any Multi-Drug Resistant Organisms: None Reported Past Surgical History: Heart Catheterization Additional Past Surgical History / Comment(s): melanoma removed from face, root canal, EKOS ( [facility]) Past Anesthesia/Blood Transfusion Reactions: No Reported Reaction Smoking Status: Never smoker - Past Family History Mother Family Medical History: No Reported History Medications and Allergies Home Medications Medication Instructions Recorded Confirmed Type Atorvastatin [Lipitor] 10 mg PO DAILY 08/25/18 05/04/24 History Finasteride [Proscar] 5 mg PO HS 08/25/18 05/04/24 History Tamsulosin [Flomax] 0.4 mg PO DAILY 08/25/18 05/04/24 History Rivaroxaban [Xarelto] 20 mg PO DAILY 02/16/24 05/04/24 History Ciprofloxacin HCl [Cipro] 500 mg PO DIRECTED 05/04/24 05/04/24 History Levothyroxine Sodium 25 mcg PO DAILY 05/04/24 05/04/24 History Allergies Allergy/AdvReac Type Severity Reaction Status Date / Time No Known Allergies Allergy Verified 05/04/24 11:52 Surgical - Exam - General well developed, well nourished, no distress - Respiratory normal respiratory effort - Genitourinary normal penis with no external lesions, testicles non-tender - Rectum Rectum: normal sphincter tone, no masses, other (Prostate mildly enlarged with left apical firmness) - Psychiatric oriented to time, oriented to person, oriented to place, speech is normal, memory intact Assessment and Plan (1) Elevated prostate specific antigen [PSA] Status: Acute Code(s): R97.20 - ELEVATED PROSTATE SPECIFIC ANTIGEN [PSA] SNOMED Code(s): 954159472 Plan: The patient will undergo MRI-Ultrasound fusion transrectal biopsies of the prostate. The procedure has been reviewed in detail with the patient. He has been made aware of potential risks, which include anesthesia, bleeding, and infection. He is also aware that a negative biopsy does not completely rule out prostate cancer.
[2024-05-10 12:18] VITALS: TEMP 97.7
[2024-05-10] MEDS: IV FLUID CONTINUATION 1,000 ML IV ONE (12:25)
[2024-05-10] MEDS ORDERED: LACTATED RINGERS 1,000 ML IV SCH (12:27)
[2024-05-10] MEDS ORDERED: LIDOCAINE 1% (10MG/ML) FOR IV START INTRADERMA PRN (12:27)
[2024-05-10] MEDS: LACTATED RINGERS 1,000 ML BAG IV STA (12:28)
[2024-05-10] MEDS: GENTAMICIN 40 MG/ML 2 ML VIAL IM PRN (13:33)
[2024-05-10] MEDS ORDERED: PROPOFOL 10 MG/ML 20 ML VIAL IV ONE (13:58)
[2024-05-10] MEDS ORDERED: fentaNYL (PF) 50 MCG/ML 2 ML AMP ONE (13:58)
[2024-05-10] MEDS ORDERED: MIDAZOLAM 2 MG/2 ML VIAL ONE (13:58)
--- NOTE | 2024-05-10 14:23 | P.OP ---
Date of Procedure: 05/10/24 Preoperative Diagnosis: Elevated PSA level Postoperative Diagnosis: Same Procedure(s) Performed: MRI fusion biopsies of the prostate Anesthesia: MAC Surgeon: Shawn Tompkins Estimated Blood Loss (ml): 5 IV fluids (ml): 300 Pathology: other (Prostate biopsies) Condition: stable Disposition: PACU Indications for Procedure: The patient is a 69-year-old white male with no family history of prostate cancer. His PSA level has been gradually rising and was most recently 7.54. MRI shows a prostate volume of 54 cc, with a PI-RADS 4 lesion within the left peripheral zone. Patient has taken finasteride for 2 to 3 years, along with tamsulosin. Operative Findings: Left apical nodule, corresponding to PI-RADS 4 lesion seen on MRI. Description of Procedure: The patient was taken to the operating room and placed in the left lateral decubitus position. HANG revealed the prostate to be moderately enlarged, with a left apical nodule. The [employer] transrectal ultrasound probe was placed intrarectally. It was then placed within the stand of the [employer] MRI/TRUS Fusion for Prostate Biopsy system. The prostate was imaged in both the axial and sagittal planes, revealing a prostate volume of 61 mL. Using the Biopty gun, 3 biopsies were obtained from the target lesion at the left lateral apex. The remaining 11 biopsies of the peripheral zone were obtained utilizing a standard template. Once the procedure was completed, the ultrasound probe was removed. The patient tolerated the procedure well was taken to the recovery room stable condition.
[2024-05-10 14:28] VITALS: RESP 16
[2024-05-10 14:41] VITALS: BP 103/59; PULSE 68
== END 2024-05-10 15:06 | disposition home or self-care (01) ==
LOC: OR 11:12
PROVIDERS: ATTEND Urology
CPT/HCPCS: 88305

== ENCOUNTER → 2024-06-11 | Outpatient (CLI) | payer MEDICARE, OTHER ==
[2024-06-11 18:38] LABS: Basophils # (A) 0.04 X 10*3/uL (0.00-0.10); Basophils % (A) 0.5 %; Eosinophils # (A) 0.11 X 10*3/uL (0.04-0.35); Eosinophils % (A) 1.4 %; HCT 47.6 % (39.6-50.0); HGB 15.6 g/dL (13.0-17.0); Lymphocytes # (A) 2.17 X 10*3/uL (0.90-5.00); Lymphocytes % (A) 27.6 %; MCH 32.6 pg (27.0-32.0); MCHC 32.8 g/dL (32.0-37.0); MCV 99.4 FL (80.0-97.0); Mean Platelet Volume 9.8 FL (9.5-12.2); Monocytes # (A) 0.71 X 10*3/uL (0.20-1.00); NRBC Per 100 WBC 0 X 10*3/uL (0.00-0.01); Neutrophils % (A) 61.2 %; Platelet Count 260 X 10*3/uL (140-440); RBC 4.79 X 10*6/uL (4.40-5.60); RDW 13.2 % (11.5-14.5); WBC 7.85 X 10*3/uL (4.50-10.00)
[2024-06-11 18:46] LABS: BUN/Creat Ratio 21.64 Ratio (12.00-20.00); Blood Urea Nitrogen 23.8 mg/dL (9.0-27.0); Calcium 9.3 mg/dL (8.7-10.3); Carbon Dioxide 24.3 mmol/L (21.6-31.8); Chloride 107 mmol/L (96-109); Glucose 93 mg/dL (70-110); Potassium 4.2 mmol/L (3.5-5.5); Sodium 144 mmol/L (135-145)
== END | disposition home or self-care (01) ==
LOC: LABPAT 15:02
PROVIDERS: ATTEND Urology
DX: Z01.812 Encounter for preprocedural laboratory examination (principal); C61 Malignant neoplasm of prostate
CPT/HCPCS: 36415; 80048; 85025; 86850; 86900; 86901

== ENCOUNTER 2024-06-21 05:44 | Day surgery (SDC) | payer MEDICARE, OTHER ==
[~2024-06-21 05:44] MED LIST changes: -ALPRAZolam 0.25 MG TAB PO PRN; -ALPRAZolam 0.5 MG TAB PO PRN; -ASPIRIN 325 MG TAB PO STA; -ATORVASTATIN 80 MG TAB PO STA; -HYDROcodone/APAP 5-325MG 1 EACH TAB PO PRN; +HYDROmorphone 0.5 MG/0.5 ML SYRINGE IVP PRN; -IOPAMIDOL-370 100ML BTL INJ ONE; -IOPAMIDOL-370 50ML BTL INJ ONE; +LIDOCAINE 1% (10MG/ML) FOR IV START INTRADERMA PRN; -LIDOCAINE 1% INJ 10MG/ML (20 ML MDV) ONE; -LIDOCAINE 1% INJ 10MG/ML (20 ML MDV) SQ ONE; -MIDAZOLAM 2 MG/2 ML VIAL IVP ONE; -NITROGLYCERIN SL TABS 0.4 MG TAB SUBLINGUAL PRN; -RX INFO: IV CONTRAST WAS GIVEN 1 EACH MISC MISCELLANE PRN; -SODIUM CHLORIDE 0.9% 1,000 ML IV SCH; -SODIUM CHLORIDE 0.9% 1,000 ML in EMPTY BAG 1 BAG IV ONE; -fentaNYL (PF) 50 MCG/ML 2 ML AMP IVP ONE; -fentaNYL (PF) 50 MCG/ML 2 ML AMP ONE
[2024-06-21] MEDS: LACTATED RINGERS 1,000 ML IV ONE ×5 (07:00→10:31)
[2024-06-21] MEDS: fentaNYL (PF) 50 MCG/1 ML VIAL IVP ONE (07:14)
[2024-06-21] MEDS: MIDAZOLAM 2 MG/2 ML VIAL IVP ONE ×3 (07:14)
[2024-06-21] MEDS: fentaNYL (PF) 50 MCG/ML 2 ML AMP IVP ONE ×2 (07:14)
[2024-06-21] MEDS: DEXAMETHASONE SOD PHOSPHATE 4 MG/ML 1 ML VIAL IV ONE (07:15)
[2024-06-21] MEDS: ONDANSETRON 4 MG/2 ML VIAL IVP ONE (07:16)
[2024-06-21] MEDS ORDERED: SODIUM CHLORIDE 0.9% (PF) 10 ML VIAL ONE (07:32)
[2024-06-21] MEDS ORDERED: ROPIVACAINE 5 MG/ML 30 ML VIAL ONE (07:32)
[2024-06-21] MEDS ORDERED: HEPARIN SODIUM,PORCINE 5,000 UNIT/ML 1 ML VIAL ONE (07:32)
[2024-06-21] MEDS ORDERED: GLYCOPYRROLATE 0.2 MG/ML 2 ML VIAL ONE (07:32)
[2024-06-21] MEDS ORDERED: MIDAZOLAM 2 MG/2 ML VIAL ONE (07:32)
[2024-06-21] MEDS ORDERED: PHENYLEPHRINE-0.9% NACL SYG 1,000 MCG/10 ML SYRINGE ONE (07:32)
[2024-06-21] MEDS ORDERED: NEOSTIGMINE 1 MG/ML 10 ML VIAL ONE (07:32)
[2024-06-21] MEDS ORDERED: SUCCINYLCHOLINE CHLORIDE 200 MG/10 ML VIAL IV ONE (07:32)
[2024-06-21] MEDS ORDERED: PROPOFOL 10 MG/ML 20 ML VIAL IV ONE (07:32)
[2024-06-21] MEDS ORDERED: SUGAMMADEX SODIUM 100 MG/ML SYR IV ONE (07:32)
[2024-06-21] MEDS ORDERED: HYDROmorphone (PF) 1 MG/ML ONE (07:32)
[2024-06-21] MEDS ORDERED: LIDOCAINE 1% INJ 10MG/ML (20 ML MDV) ONE (07:32)
[2024-06-21] MEDS ORDERED: fentaNYL (PF) 50 MCG/ML 2 ML AMP ONE (07:32)
[2024-06-21] MEDS ORDERED: ROCURONIUM 10 MG/ML (5 ML VIAL) IV ONE (07:32)
[2024-06-21] MEDS ORDERED: ONDANSETRON 4 MG/2 ML VIAL IVP PRN (07:42)
--- NOTE | 2024-06-21 07:42 | P.HPIHPCON ---
History of Present Illness H&P Date: 06/21/24 Chief Complaint: Prostate cancer This is a 69-year-old male with history of [place] 7 prostate cancer. Option of radiation therapy versus robotic radical prostatectomy was discussed with him in detail. He agreed to proceed with a robotic radical prostatectomy, aware of the risk which includes but not limited to bleeding, infection, injury to nearby organs which includes but not limited to bladder, rectum, bowel. Risk of cancer recurrence, need for additional treatments was also discussed. Risk of anesthesia was also discussed with him in details. He understood all the risks and agreed to proceed Consent for Procedure: I have explained the operation/procedure to the patient, including the risks, benefits, side effects, alternative therapies (including not receiving the proposed treatment or service), the likelihood of the patient achieving his/her goals, and potential recuperation problems for the procedure/sedation/analgesia, as well as any blood products, if indicated. I also explained to the patient the risks, benefits and side effects of the alternatives, as well as the risks related to not receiving the proposed procedure, care, treatment, or services. Past Medical History Past Medical History: Cancer, Deep Vein Thrombosis (DVT), Hyperlipidemia, Prostate Disorder, Pulmonary Embolus (PE), Thyroid Disorder Additional Past Medical History / Comment(s): hx melanoma, hx kidney stones, 5 bulging discs, Lt. leg DVT, PE 2019. blood disorder that causes clots- antiphospholipid syndrome. BPH. dupuytren syndrome, prostate cancer, hypothyroidism History of Any Multi-Drug Resistant Organisms: None Reported Past Surgical History: Heart Catheterization Additional Past Surgical History / Comment(s): melanoma removed from face, root canal, [facility] ( [facility]), prostate biopsy Past Anesthesia/Blood Transfusion Reactions: No Reported Reaction Smoking Status: Never smoker - Past Family History Mother Family Medical History: No Reported History Medications and Allergies Home Medications Medication Instructions Recorded Confirmed Type Atorvastatin [Lipitor] 10 mg PO DAILY 08/25/18 06/21/24 History Finasteride [Proscar] 5 mg PO HS 08/25/18 06/21/24 History Tamsulosin [Flomax] 0.4 mg PO DAILY 08/25/18 06/21/24 History Rivaroxaban [Xarelto] 20 mg PO DAILY 02/16/24 06/21/24 History Levothyroxine Sodium 25 mcg PO DAILY 05/04/24 06/21/24 History Allergies Allergy/AdvReac Type Severity Reaction Status Date / Time No Known Allergies Allergy Verified 06/15/24 13:39 Surgical - Exam Vital Signs Temp Pulse Resp BP Pulse Ox 98.1 F 72 16 155/66 100 06/21/24 06:30 06/21/24 06:30 06/21/24 06:30 06/21/24 06:30 06/21/24 06:30 - General no distress, no pain - Eyes normal ocular movement, no pale - ENT normal nares, normal mucosa - Respiratory normal expansion, normal respiratory effort - Abdomen Abdomen: soft, non tender - Psychiatric oriented to time, oriented to person, oriented to place Assessment and Plan Assessment: OR for robotic radical prostatectomy with possible bilateral pelvic lymph node dissection
[2024-06-21] MEDS: BUPIVACAINE (PF) 0.25% 30 ML VIAL SQ ONE ×2 (08:05→11:30)
--- NOTE | 2024-06-21 08:10 | P.ANPRN ---
Procedure Note - Anesthesia - Nerve Block Performed Bilateral Erector Spinae Single Time Out Performed: Yes ([id number]) Date of Procedure: 06/21/24 Procedure Start Time: 07:14 Procedure Stop Time: 07:18 Location of Patient: PreOp Indication: Acute Post-Operative Pain, Requested by Surgeon Specifically requested for management of pain by : Cullen Urias Sedation Type: Sedate with meaningful contact maintained Preparation: Sterile Prep Position: Sitting Catheter: None Needle Types: Pajunk Needle Gauge: 21 Ultrasound used to visualize needle placement: Yes Ultrasound used to observe medication spread: Yes Injectate: 0.5% Ropivacaine (see comment for volume) (15cc+10cc nacl pf each side) Blood Aspirated: No Pain Paresthesia on Injection Noted: No Resistance on Injection: Normal Image Stored and Saved: Yes Events: Uneventful and Well Tolerated
--- NOTE | 2024-06-21 11:44 | P.OP ---
Date of Procedure: 06/21/24 Preoperative Diagnosis: Prostate cancer Postoperative Diagnosis: Same Procedure(s) Performed: Robotic assisted laparoscopic radical prostatectomy with bilateral pelvic lymph node dissection Implants: None Anesthesia: CHRISTOPHERA Surgeon: Cullen Urias Estimated Blood Loss (ml): 100 Pathology: other (Prostate, bilateral seminal vesicle, bilateral pelvic lymph nodes) Condition: stable Disposition: PACU Indications for Procedure: This is a 69-year-old male with history of [place] 7 prostate cancer. Option of radiation therapy versus robotic radical prostatectomy was discussed with him in detail. He agreed to proceed with a robotic radical prostatectomy, aware of the risk which includes but not limited to bleeding, infection, injury to nearby organs which includes but not limited to bladder, rectum, bowel. Risk of cancer recurrence, need for additional treatments was also discussed. Risk of anesthesia was also discussed with him in details. He understood all the risks and agreed to proceed Description of Procedure: After preoperative antibiotics were started, the patient was taken to the operating room. Anesthesia was induced and the patient was placed in supine position, with adequate padding of the pressure points, shoulders, back, legs and arms. He was then prepped and draped in the standard fashion. A critical pause was performed using two patient identifiers. A 16F العراقي catheter was placed to gravity drainage. A pneumo-peritoneum was created with placement of a Veress needle to 20 mm Hg without complication, and a 8 Fr trocar was placed above the umbillicus. Under direct vision a 8mm robotic ports was placed lateral to each rectus slightly below the camera port. The left iliac fossa 8mm port was placed. The right first assistant right iliac fossa 12mm port and right paramedian 5mm portwere placed. After the patient was placed in the trendelenberg position, the robot was then docked to the 8mm robotic ports and then each robotic arm and tower was checked in relation to the patient's legs and hands to avoid inadvertent compression. The peritoneal cavity was inspected. An inverted U-shaped incision began laterally to the left medial umbilical ligament and extended high across the midline to the right umbilical ligament. The limbs of the "U" extended to the level of the vasa on both sides. We next developed the preperitoneal space and the space of Retzius. Cautery was used to dissected the bladder away from the prostate. After the anterior bladder neck was incised and the bladder entered the the posterior bladder neck was exposed and the ureteral orifces identified. Of note patient had a slight enlargement of the median lobe with intravesical extension. The posterior bladder neck was then incised and dissected away from the prostate. The vas and the seminal vesicles were now exposed and dissected to their insertions into the prostate and were not spared. The posterior layer of the Denonvillier's fascia was incised to enter dung the plane between prostate and perirectal fat. Each lateral pedicle was controlled with Vessel sealer . Bilateral partial nerve preservation . The puboprostatic ligament was incised where it inserted into the apex of the prostate and a plane between urethra and dorsal venous complex developed to expose the anterior urethral surface. The anterior wall of the urethra was transected with the cut setting a few millimeters distal to the apex of the prostate. The dorsal vein was ligated using 3-0 V lock bilateral obturator and external iliac lymph node packets were carefully dissected after careful visualization of the hypogastric artery and obturator nerve. There was careful attention paid to hemostasis with judicious use of cautery. The urethrovesical anastomosis was performed . the posterior denovillers was reapproximated using 3-0 V lock. A 9 and 6 inch 3-0 V-Lock suture was used to anastomose the urethra and bladder, starting at the 6:00 posterior position. Mucosa was secured in every stitch, to ensure a mucosa to mucosa anastomosis. The stitch was regularly cinched and the anastomosis tightened. Care was taken to not violate the ureteral orifices. The العراقي catheter was advanced, the bladder filled, and the anastomosis was tested, as described above. Anastomsis was watertight at 150 mL The periumbilical fascia was closed with 1-0-PDS suture in figure of eight fashion. All ports were closed with a subcuticular 4-0 monocryl and Dermabond. Sponge, instrument, and needle counts were correct at the end of the case x2. All specimens including prostate and lymph nodes were sent to pathology for diagnosis and will be available in a week. The patient tolerated the surgery well and without complication. He awoke without difficulty and was taken to the recovery room in stable condition
[2024-06-21] MEDS: droPERidol 5 MG/2 ML VIAL IVP ONE (15:38)
[2024-06-21] MEDS: LACTATED RINGERS 1,000 ML IV SCH (15:38)
[2024-06-21] MEDS: D5-0.45% NACL WITH KCL 20MEQ/L 1,000 ML IV SCH (15:48)
[2024-06-21] MEDS: HEPARIN SODIUM,PORCINE 5,000 UNIT/ML 1 ML VIAL SQ SCH (15:48)
[2024-06-21] MEDS: KETOROLAC 15 MG/ML 1 ML VIAL IVP PRN (21:56)
[2024-06-22] MEDS: LEVOTHYROXINE 25 MCG TAB PO SCH (05:35)
[2024-06-22] MEDS: ATORVASTATIN 10 MG TAB PO SCH (09:18)
[2024-06-22] MEDS: HYDROmorphone 1 MG/ML 1 ML SYRINGE IVP PRN (12:49)
--- NOTE | 2024-06-22 20:55 | P.PN ---
Subjective Progress Note Date: 06/22/24 Principal diagnosis: POD #1, s/p RALP The patient underwent an uncomplicated RALP yesterday. When seen this morning, he was tolerating regular diet. He was afebrile with stable vital signs. He reported mild incisional discomfort and had not yet been out of bed. He is most bothered by right lateral abdominal discomfort in the area of the assistant store manager operations port. Objective - Vital Signs Vital signs: Vital Signs Temp 98.7 F 06/22/24 14:30 Pulse 69 06/22/24 14:30 Resp 16 06/22/24 14:30 BP 107/62 06/22/24 14:30 Pulse Ox 93 L 06/22/24 14:30 FiO2 Intake & Output 06/22/24 06/22/24 06/23/24 06:59 18:59 06:59 Output Total 1650 1000 Balance -1650 -1000 Output: Urine 1650 1000 Other: Voiding Method Indwelling Catheter Indwelling Catheter - Constitutional General appearance: Present: average body habitus, cooperative, no acute distress - Gastrointestinal Gastrointestinal Comment(s): Abdomen soft, non-distended. Incisions clean, dry, and intact. Rubi catheter intact, draining clear yellow urine. - Psychiatric Psychiatric: Present: A&O x's 3 (Boy) Assessment and Plan (1) Malignant neoplasm of prostate Current Visit: Yes Status: Acute Code(s): C61 - MALIGNANT NEOPLASM OF PROSTATE SNOMED Code(s): 943692170 Plan: Patient was advised to ambulate. Discharge home tomorrow is anticipated.
[2024-06-22] MEDS: HYDROcodone/APAP 5-325MG 1 EACH TAB PO PRN (21:00)
[2024-06-22 22:17] VITALS: RESP 18
[2024-06-23 07:55] VITALS: BP 113/70; PULSE 59; TEMP 98.4
--- NOTE | 2024-06-23 09:51 | P.DS ---
Providers Expected date of discharge: 06/23/24 Attending physician: Cullen Urias MD Primary care physician: Violeta Hernandez - Discharge Diagnosis(es) (1) Malignant neoplasm of prostate Current Visit: Yes Status: Acute Hospital Course: On the day of admission, the patient underwent an uncomplicated RALP. In the first postoperative day, he reported right sided abdominal discomfort and did not feel up to ambulating. He remained afebrile with stable vital signs throughout the hospitalization. He was tolerating diet without difficulty. On the second postoperative day, he was ambulating and felt considerably better. The incisions were noted to be clean, dry, and intact. The Rubi catheter was draining clear yellow urine. Procedures: Robotic assisted laparoscopic prostatectomy (RALP) with bilateral pelvic lymphadenectomy on June 21, 2024. Patient Condition at Discharge: Good Plan - Discharge Summary Discharge Rx Participant: Yes New Discharge Prescriptions: New Ciprofloxacin HCl [Cipro] 250 mg PO Q12HR #6 tablet Ketorolac [Toradol] 10 mg PO Q6HR PRN #10 tab PRN Reason: Pain Ciprofloxacin HCl [Cipro] 250 mg PO Q12HR #6 tablet Ketorolac [Toradol] 10 mg PO Q6HR PRN #10 tab PRN Reason: Pain No Action Atorvastatin [Lipitor] 10 mg PO DAILY Finasteride [Proscar] 5 mg PO HS Tamsulosin [Flomax] 0.4 mg PO DAILY Levothyroxine Sodium 25 mcg PO DAILY Rivaroxaban [Xarelto] 20 mg PO DAILY Discharge Medication List Atorvastatin [Lipitor] 10 mg PO DAILY 08/25/18 [History] Finasteride [Proscar] 5 mg PO HS 08/25/18 [History] Tamsulosin [Flomax] 0.4 mg PO DAILY 08/25/18 [History] Rivaroxaban [Xarelto] 20 mg PO DAILY 02/16/24 [History] Levothyroxine Sodium 25 mcg PO DAILY 05/04/24 [History] Ciprofloxacin HCl [Cipro] 250 mg PO Q12HR #6 tablet 06/22/24 [Rx] Ketorolac [Toradol] 10 mg PO Q6HR PRN #10 tab 06/22/24 [Rx] Ciprofloxacin HCl [Cipro] 250 mg PO Q12HR #6 tablet 06/23/24 [Rx] Ketorolac [Toradol] 10 mg PO Q6HR PRN #10 tab 06/23/24 [Rx] Follow up Appointment(s)/Referral(s): Cullen Urias MD [STAFF PHYSICIAN] - 06/29/24 10:00 am Activity/Diet/Wound Care/Special Instructions: Discharge home with Rubi catheter. OK to shower. Diet as tolerated. No lifting, driving, or strenuous activity. Begin taking ciprofloxacin on June 28, 2024. Please reassure patient that it is common to experience the fo llowing: Hematuria, urinary leakage around the catheter, abdominal wall bruising, and penoscrotal swelling. Discontinue tamsulosin and finasteride. May resume Xarelto on June 24 or June 25, once he has switched from Toradol to Tylenol as an analgesic (patient has been advised not to take Toradol concurrently with Xarelto). Discharge Disposition: HOME SELF-CARE
== END 2024-06-23 12:51 | disposition home or self-care (01) ==
LOC: OR 05:44 → 4SSUR 14:10 → OR 06-23 12:51
PROVIDERS: ATTEND Urology
DX: C61 Malignant neoplasm of prostate (principal); E78.5 Hyperlipidemia, unspecified; E03.9 Hypothyroidism, unspecified; N40.0 Benign prostatic hyperplasia without lower urinary tract symptoms; M54.50 Low back pain, unspecified; Z86.711 Personal history of pulmonary embolism; Z86.718 Personal history of other venous thrombosis and embolism; Z87.442 Personal history of urinary calculi; Z79.01 Long term (current) use of anticoagulants; Z79.890 Hormone replacement therapy; Z79.02 Long term (current) use of antithrombotics/antiplatelets; Z79.899 Other long term (current) drug therapy
CPT/HCPCS: 94760; 64999; 55866; 38571; J2250; J1644 ×3; J1100; J0690; J2405; J1171; J1885 ×3; J3010; J0665; 88307; 88309